=== PATIENT | male | born 1970 | race Caucasian/White ===

== ENCOUNTER 2017-03-03 22:03 | Emergency (ER) | payer BC ==
[~2017-03-03] VITALS: Ht 170.2 cm; Wt 94.1 kg
[~2017-03-03 22:03] MED LIST: ALAVERT10 M1 PO; ANDROGEL1.62% TOP; CLARITIN 1010 MG/TAB PO; HCTZ; LISINOPRIL10 MG PO; LORTAB 5/500 501 TAB PO; PERCOCET 325 MG1 TA2 PO; PRILOSEC 20MG20 MG PO; PROTONIX 40MG T40 MG PO; ZESTORETIC 12.51 TA1 PO; ZOFRAN 4MG T4 MG/TAB PO; ZOFRAN4 MG PO
[2017-03-03 22:07] VITALS: TEMP 97
[2017-03-03] MEDS ORDERED: [UNRECOGNIZED DRUG - OTHER] PO (22:27)
[2017-03-03] MEDS ORDERED: PRINZIDE 12.5 M1 TAB PO (22:28)
[2017-03-03] MEDS ORDERED: ANDROGEL1.62% TOP (22:29)
[2017-03-03] MEDS ORDERED: VOGELXO (22:29)
[2017-03-03] MEDS ORDERED: NUMBONEX30 GM TP (22:30)
[2017-03-03 22:40] LABS: BASO # 0.1 (0.0-0.2); BASO % 0.5 % (0.0-2.0); EOS # 0.2 (0.0-0.7); EOS % 1.3 % (0-4.0); GRAN # 11.6 (1.4-6.5); GRAN % 76.2 % (42.2-75.2); LYMPH # 2.1 (1.2-3.4); LYMPH % 13.8 % (20.0-51.0); MEAN CELL VOLUME 86 fl (80.0-100.0); MEAN CORPUSCULAR HGB CONC 34 g/dl (33.0-37.0); MEAN PLATELET VOLUME 9.6 fl (7.4-10.4); MONO # 1.2 (0.1-0.6); MONO % 7.7 % (1.7-9.3); PLATELET COUNT 234 K/mm3 (130-400); RED BLOOD COUNT 6.35 M/mm3 (4.20-5.60); WHITE BLOOD COUNT 15.2 K/mm3 (4.8-10.8)
[2017-03-03 22:50] LABS: HEMATOCRIT 54.6 % (42.0-52.0); HEMOGLOBIN 18.5 g/dl (13.5-18.0); MEAN CORPUSCULAR HEMOGLOBIN 29 pg (27.0-31.0)
[2017-03-03 22:58] LABS: ADJUSTED CALCIUM 8.4 mg/dL (8.4-10.2); ALBUMIN 4.7 gm/dL (3.5-5.0); BILIRUBIN,TOTAL 0.9 mg/dL (0.0-1.0); CREATININE, serum 1.06 mg/dL (0.66-1.25); POTASSIUM 3.4 mmol/L (3.4-5.0)
[2017-03-03] MEDS ORDERED: PROAIR HFA0.09 MG/AC IH (22:59)
[2017-03-04 00:12] VITALS: BP 138/78; PULSE 84
== END 2017-03-04 00:12 | disposition home or self-care (01) ==
LOC: COL.ER 22:03
PROVIDERS: Emergency Medicine
DX: R10.9 Unspecified abdominal pain (principal); I10 Essential (primary) hypertension
CPT/HCPCS: J2405; J2550; J7030; Q9967

== ENCOUNTER 2021-01-05 09:08 | Day surgery (SDC) | payer BC ==
[~2021-01-05] VITALS: Ht 170.2 cm; Wt 93.9 kg
[~2021-01-05 09:08] MED LIST changes: +NUMBONEX30 GM TP; +PRINZIDE 12.5 M1 TAB PO; +PROAIR HFA0.09 MG/AC IH; +VOGELXO; +[UNRECOGNIZED DRUG - OTHER] PO
--- NOTE | 2021-01-05 10:15 | NUR ---
PATIENT AMBULATED INTO ENDO UNIT ACCOMPANIED BY . STEADY GAIT. PATIENT IS ALERT AND ORIENTED X 4. CONSENT EXPLAINED AND PATIENT SIGNED. ASSESSMENT COMPLETED. LUNGS CTA. HEART S1S2 AND REGULAR. BOWEL SOUNDS HEARD. PEDAL PULSES +1. CALL LIGHT EXPLAINED AND PATIENT VERBALIZED UNDERSTANDING.
[2021-01-05] MEDS ORDERED: ASPIRIN E.C. 8181 MG PO (10:16)
[2021-01-05 11:48] VITALS: BP 109/81; PULSE 78; TEMP 98.2
[2021-01-05 13:00] VITALS: BP 106/79; PULSE 83; TEMP 97.3
--- NOTE | 2021-01-05 13:00 | NUR ---
PATIENT BROUGHT BACK TO ENDO ROOM 6 VIA CART. AMBULATED TO CHAIR WITHOUT DIFFICULTY. PATIENT IS AWAKE, ALERT, PLACED ON MONITORS, VITAL SIGNS STABLE. REPORT RECIEVED FROM [facility], ALL QUESTIONS ANSWERED. REQUESTING JUICE AND JELLO. AT BEDSIDE TO DRIVE PATIENT HOME. WARM BLANKET PROVIDED, CALL LAM WITHIN REACH. WILL CONTINUE TO MONITOR.
[2021-01-05 13:15] VITALS: BP 115/75; PULSE 75
--- NOTE | 2021-01-05 13:15 | NUR ---
TOLERATING FOOD AND DRINK WITHOUT DIFFICULTY. VITAL SIGNS STABLE. DR. KIRKPATRICK AT BEDSIDE TO DISCUSS RESULTS WITH PATIENT AND .
[2021-01-05 13:30] VITALS: BP 117/88; PULSE 77
--- NOTE | 2021-01-05 13:30 | NUR ---
PATIENT STATES HE FEELS READY TO GO HOME AT THIS TIME. DISCHARGE PAPERWORK REVIEWED WITH PATIENT AND . ALL QUESTIONS ANSWERED. IV REMOVED, INTACT. PATIENT TO GET DRESSED AT THIS TIME.
--- NOTE | 2021-01-05 14:00 | NUR ---
PATIENT BROUGHT DOWN TO LOBBY VIA WHEEL CHAIR. TO DRIVE PATIENT HOME. ALL BELONGNINGS IN HAND.
== END 2021-01-05 14:00 | disposition home or self-care (01) ==
LOC: SDCO 09:08
DX: Z12.11 Encounter for screening for malignant neoplasm of colon (principal); D12.5 Benign neoplasm of sigmoid colon; K21.9 Gastro-esophageal reflux disease without esophagitis; K22.4 Dyskinesia of esophagus; K44.9 Diaphragmatic hernia without obstruction or gangrene; K31.89 Other diseases of stomach and duodenum; K29.50 Unspecified chronic gastritis without bleeding; K29.80 Duodenitis without bleeding; K31.7 Polyp of stomach and duodenum; K22.8 Other specified diseases of esophagus; I10 Essential (primary) hypertension; E66.9 Obesity, unspecified; J45.909 Unspecified asthma, uncomplicated; G43.909 Migraine, unspecified, not intractable, without status migrainosus; D64.9 Anemia, unspecified; E23.0 Hypopituitarism; Z98.890 Other specified postprocedural states; Z98.84 Bariatric surgery status; Z20.822 Contact with and (suspected) exposure to COVID-19; Z87.11 Personal history of peptic ulcer disease; Z79.82 Long term (current) use of aspirin; Z79.899 Other long term (current) drug therapy
CPT/HCPCS: J7120

== ENCOUNTER → 2021-01-11 | Outpatient (CLI) | payer BC ==
[~2021-01-11] MED LIST changes: +ASPIRIN E.C. 8181 MG PO
== END ==
LOC: COL.RAD 10:15
DX: K44.9 Diaphragmatic hernia without obstruction or gangrene (principal)

== ENCOUNTER → 2021-02-21 | Outpatient (CLI) | payer BC | LOC: COL.RAD 07:24 | DX: K21.9 Gastro-esophageal reflux disease without esophagitis (principal); D12.6 Benign neoplasm of colon, unspecified; K29.00 Acute gastritis without bleeding; K29.80 Duodenitis without bleeding | CPT/HCPCS: A9541 ==